=== PATIENT | female | born 1970 | race Caucasian/White ===

== ENCOUNTER 2017-01-31 11:17 | Emergency (ER) | payer MEDICAID ==
[2017-01-31 11:36] VITALS: PULSE 77; RESP 18
--- NOTE | 2017-01-31 11:52 | CPEKG ---
Heart Rate: 68 RR Interval: 882 P-R Interval: 160 QRSD Interval: 90 QT Interval: 396 QTC Interval: 422 P [place]: -15 QRS [place]: 35 T Wave [place]: -10 EKG Severity - BORDERLINE ECG - EKG Impression: SINUS RHYTHM EKG Impression: BORDERLINE T ABNORMALITIES, INFERIOR LEADS Electronically Signed By: Óscar Vo 31-Jan-2017 14:40:00
[2017-01-31 12:01] LABS: % IMMATURE GRANULYOCYTES 0.2 % (0.0-1.1); ABSOLUTE IMMATURE GRANULOCYTES 0.02 10^3/uL (0.00-0.10); ADD DIFF? NO; ADD MORPH? NO; ADD SCAN? NO; ATYPICAL LYMPHOCYTE FLAG 0 (0-99); FRAGMENT RBC FLAG 0 (0-99); HEMATOCRIT 37.1 % (38.0-47.0); HEMOGLOBIN 12.4 g/dL (12.6-16.3); LEFT SHIFT FLG 0 (0-99); LIPEMIA HEMOLYSIS FLAG 80 (0-99); MEAN CELL HEMOGLOBIN 30.1 pg (27.9-34.1); MEAN CELL HEMOGLOBIN CONCENTR. 33.4 g/dL (32.4-36.7); MEAN PLATELET VOLUME 10.3 fL (8.7-11.7); PLATELET CLUMPS FLAG 0 (0-99); PLATELET COUNT 253 10^3/uL (150-400); RED BLOOD CELL COUNT 4.12 10^6/uL (4.18-5.33); RED CELL DISTRIBUTION WIDTH 13.5 % (11.5-15.2)
--- NOTE | 2017-01-31 12:01 | EDPHY ---
H & P Time Seen by Provider: 01/31/17 11:17 HPI/ROS: CHIEF COMPLAINT: Fall, syncope HISTORY OF PRESENT ILLNESS: 46-year-old female presents to the emergency department by ambulance after she had a mechanical fall at her doctor's office, [facility] just prior to arrival. The patient has a history of undiagnosed neurologic condition, possible MS. She was at her doctor's office receiving lidocaine injections for her chronic pain and she felt like her legs were becoming weak and then she fell landing on the ground. Her doctor states that she then had a brief syncopal episode. The patient describes diffuse headache. She describes left shoulder pain and mid to low back pain. She has chronic pain in her lower back as well as in her left leg. She is having pain in her left hip. She denies chest pain or difficulty breathing. Denies abdominal pain. Denies pain in her right upper extremity or in her right lower extremity. REVIEW OF SYSTEMS: Constitutional: No fever, no chills. Eyes: No double or blurry vision. ENT: No sore throat. Respiratory: No cough, no shortness of breath. Cardiac: No chest pain. Gastrointestinal: No abdominal pain, vomiting or diarrhea. Genitourinary: No dysuria. Musculoskeletal: Neck and back pain as above. Skin: No rashes. Neurological: headache. Past Medical/Surgical History: Undiagnosed neurologic disorder, possible MS, fibromyalgia, chronic pain Social History: Smoking Status: Never smoked Physical Exam: General Appearance: Alert, no distress. No visible signs of trauma to her head. She is mentating normally and answering questions appropriately. Cervical collar is in place. Eyes: Pupils equal and round. Extraocular motions are all intact. ENT: Mouth: Mucous membranes moist. Respiratory: No wheezing, rhonchi, or rales, lungs are clear to auscultation. Cardiovascular: Regular rate and rhythm. Gastrointestinal: Abdomen is obese and soft and nontender, no masses, no rebound or guarding, bowel sounds normal. Neurological: Alert and oriented x 3, cranial nerves II through XII grossly intact Skin: Warm and dry, no rashes. Musculoskeletal: Diffusely tender to palpate along cervical, thoracic and lumbar spine. Patient is unable to lie flat secondary to pain in her left hip and her low back. Neck is supple. Extremities: Pain with range of motion of her left shoulder. No palpable bony abnormality in the left shoulder. Full range of motion of the right upper extremity and right lower extremity. Limited range of motion of the left hip. Gait is not tested due to pain. Psychiatric: Patient is oriented X 3, there is no agitation. Constitutional: Initial Vital Signs Temperature (C) 37.1 C 01/31/17 11:30 Heart Rate 77 01/31/17 11:30 Respiratory Rate 18 01/31/17 11:30 Blood Pressure 137/88 H 01/31/17 11:30 O2 Delivery Mode Room Air Allergies/Adverse Reactions: Penicillin Allergy (Uncoded 09/14/16 19:44) Home Medications: Medication Instructions Recorded Baclofen 09/14/16 Cyclobenzaprine 09/14/16 GABAPENTIN 09/14/16 Hydrocodone/Acetaminophen 09/14/16 OXYCODONE HCL/ACETAMINOPHEN 09/14/16 Medical Decision Making - Diagnostics Imaging: CT imaging of the brain reveals nothing acute. This is reported to me by Dr. Lee. X-rays of the cervical spine, left shoulder, left hip, and lumbar spine reveal no fractures or other acute abnormality. X-rays of the thoracic spine reveal possible mild compression deformity of undetermined age at T7. This is reviewed by myself the PAC system as well as by the radiologist. ED Course/Re-evaluation: 46-year-old female presents to the emergency department after she had a witnessed mechanical fall and then had a syncopal episode. CT imaging of the brain was normal. Her x-rays were unremarkable with the exception of a mild possible compression deformity of T7. There is no palpable bony deformity. The patient was able to walk unassisted without difficulty. She is comfortable being discharged home. Her cervical collar was removed. She demonstrated full range of motion of her neck without pain or difficulty. She has diffuse pain with palpation along both her thoracic spine without localizing pain over T7. I feel that this is likely old. The case was discussed with Dr. Óscar Vo, secondary supervising physician , who did not directly evaluate the patient but agrees with treatment and plan. Differential Diagnosis: Back pain including but not limited to muscular pain, herniated disc, spine fracture, intra-abdominal causes and urinary tract infection. Head injury including but not limited to concussion, skull fracture, intraparenchymal contusion, subarachnoid, subdural and epidural hematoma. Syncope including but not limited to vasovagal syncope, arrhythmia, dehydration , and blood loss. - Data Points Laboratory Results: Laboratory Results 01/31/17 11:59 01/31/17 11:59 01/31/17 01/31/17 11:59 11:59 WBC 9.50 10^3/uL 10^3/uL (3.80-9.50) RBC 4.12 10^6/uL L 10^6/uL (4.18-5.33) Hgb 12.4 g/dL L g/dL (12.6-16.3) Hct 37.1 % L % (38.0-47.0) MCV 90.0 fL fL (81.5-99.8) MCH 30.1 pg pg (27.9-34.1) MCHC 33.4 g/dL g/dL (32.4-36.7) RDW 13.5 % % (11.5-15.2) Plt Count 253 10^3/uL 10^3/uL (150-400) MPV 10.3 fL fL (8.7-11.7) Neut % (Auto) 47.7 % % (39.3-74.2) Lymph % (Auto) 43.6 % % (15.0-45.0) [place] % (Auto) 5.9 % % (4.5-13.0) Eos % (Auto) 2.1 % % (0.6-7.6) Baso % (Auto) 0.5 % % (0.3-1.7) Nucleat RBC Rel Count 0.0 % % (0.0-0.2) Absolute Neuts (auto) 4.53 10^3/uL 10^3/uL (1.70-6.50) Absolute Lymphs (auto) 4.14 10^3/uL H 10^3/uL (1.00-3.00) Absolute Monos (auto) 0.56 10^3/uL 10^3/uL (0.30-0.80) Absolute Eos (auto) 0.20 10^3/uL 10^3/uL (0.03-0.40) Absolute Basos (auto) 0.05 10^3/uL 10^3/uL (0.02-0.10) Absolute Nucleated RBC 0.00 10^3/uL 10^3/uL (0-0.01) Immature Gran % 0.2 % % (0.0-1.1) Immature Gran # 0.02 10^3/uL 10^3/uL (0.00-0.10) Sodium 141 mEq/L mEq/L (134-144) Potassium 4.3 mEq/L mEq/L (3.5-5.2) Chloride 107 mEq/L mEq/L (97-110) Carbon Dioxide 25 mEq/l mEq/l (22-31) Anion Gap 9 mEq/L mEq/L (8-16) BUN 12 mg/dL mg/dL (7-23) Creatinine 0.6 mg/dL mg/dL (0.6-1.0) Estimated GFR > 60 Glucose 83 mg/dL mg/dL (70-100) Calcium 8.9 mg/dL mg/dL (8.5-10.4) Medications Given: Discontinued Medications Baclofen (Baclofen) 10 mg PO EDNOW ONE Stop: 01/31/17 13:06 Last Admin: 01/31/17 13:18 Dose: 10 mg Fentanyl (Sublimaze) 100 mcg IVP EDNOW ONE Stop: 01/31/17 13:04 Last Admin: 01/31/17 13:18 Dose: 100 mcg Gabapentin (Neurontin) 600 mg PO EDNOW ONE Stop: 01/31/17 13:06 Last Admin: 01/31/17 14:30 Dose: Not Given Gabapentin (Neurontin) 600 mg PO ONCE ONE Stop: 01/31/17 14:01 Last Admin: 01/31/17 14:30 Dose: 600 mg Departure - Departure Disposition: Home, Routine, Self-Care Clinical Impression: Fall Qualifiers: Encounter type: initial encounter Qualified Code(s): W19.XXXA - Unspecified fall, initial encounter Cervical strain Qualifiers: Encounter type: initial encounter Qualified Code(s): S16.1XXA - Strain of muscle, fascia and tendon at neck level, initial encounter Low back strain Qualifiers: Encounter type: initial encounter Qualified Code(s): S39.012A - Strain of muscle, fascia and tendon of lower back, initial encounter Sprain of left shoulder Qualifiers: Encounter type: initial encounter Shoulder sprain type: unspecified sprain Qualified Code(s): S43.402A - Unspecified sprain of left shoulder joint, initial encounter Contusion of left hip Qualifiers: Encounter type: initial encounter Qualified Code(s): S70.02XA - Contusion of left hip, initial encounter Condition: Good Instructions: Cervical Strain (ED), Low Back Strain (ED), Contusion in Adults ( ED), Fall Prevention (ED) Additional Instructions: Continue your prescribed medications. Return if you develop increasing pain, or if you feel worse in any way. Referrals: Jennifer Seymour MD [Medical Doctor] - As per Instructions (Primary care provider director construction services)
[2017-01-31 12:28] LABS: ANION GAP 9 mEq/L (8-16); CALCIUM 8.9 mg/dL (8.5-10.4); CARBON DIOXIDE 25 mEq/l (22-31); CHLORIDE 107 mEq/L (97-110); CREATININE 0.6 mg/dL (0.6-1.0); GLOMERULAR FILTRATION RATE > 60; GLUCOSE 83 mg/dL (70-100); POTASSIUM 4.3 mEq/L (3.5-5.2); SODIUM 141 mEq/L (134-144)
[2017-01-31] MEDS ORDERED: fentaNYL 100 MCG/2 ML INJ IVP ONE (13:03)
[2017-01-31] MEDS ORDERED: BACLOFEN 10 MG TAB PO ONE (13:05)
[2017-01-31] MEDS ORDERED: GABAPENTIN 400 MG CAP PO ONE (13:05)
[2017-01-31] MEDS ORDERED: GABAPENTIN 300 MG CAP PO ONE (14:00)
[2017-01-31 16:16] VITALS: BP 133/84; TEMP 98.4; O2SAT 94
== END 2017-01-31 16:17 | disposition home or self-care (01) ==
LOC: EDUNIT#
DX: S39.012A Strain of muscle, fascia and tendon of lower back, initial encounter (principal); S16.1XXA Strain of muscle, fascia and tendon at neck level, initial encounter; S43.402A Unspecified sprain of left shoulder joint, initial encounter; S70.02XA Contusion of left hip, initial encounter; W19.XXXA Unspecified fall, initial encounter
CPT/HCPCS: 96374; J3010

== ENCOUNTER → 2017-02-28 | Outpatient (CLI) | payer MEDICAID ==
[~2017-02-28] MED LIST: GADOBUTROL 10 ML VIAL IVP ONE
== END ==
LOC: FIMAGING 10:46
PROVIDERS: ATTEND Physician Assistant Medical
DX: R90.82 White matter disease, unspecified (principal); R20.0 Anesthesia of skin; R20.2 Paresthesia of skin; M62.81 Muscle weakness (generalized)
CPT/HCPCS: A9585